=== PATIENT | female | born 1940 | race Caucasian/White ===

== ENCOUNTER → 2017-03-01 | Outpatient (CLI) | payer OTHER, MEDICARE | LOC: FIMAGING 10:08 | DX: Z12.31 Encounter for screening mammogram for malignant neoplasm of breast (principal) | CPT/HCPCS: G0202 ==

== ENCOUNTER 2018-02-23 12:42 | Emergency (ER) | payer OTHER, MEDICARE ==
--- NOTE | 2018-02-23 12:59 | EDPHY ---
H & P Time Seen by Provider: 02/23/18 12:59 HPI/ROS: CHIEF COMPLAINT: High blood pressure and nausea HISTORY OF PRESENT ILLNESS: 78-year-old woman has a history of hyperlipidemia, subdural, knee and hip replacement. She was in her primary care physician's office this past week on Tuesday and had incidentally diagnosed hypertension and was advised to monitor her blood pressure. Apparently the systolics were in the 150 range on Tuesday. Today she took her blood pressure and it was as high as 204/102, about an hour ago around noon she developed nausea and feeling lightheaded presents for evaluation. Not associated with abdominal pain or vomiting. No palpitations or syncope. Symptoms mild, she does feel anxious. REVIEW OF SYSTEMS: Eye: no change in vision, no double vision. ENT: no sore throat Cardiac: No chest pain, intermittently lightheaded for about the past week but not currently in the ER. Pulmonary: no cough or SOB Abdomen: no vomiting, diarrhea, abdominal pain. 2 other urgent bowel movements earlier today otherwise negative Musculoskeletal: no back pain Skin: no rash Neuro: Intermittent sharp left-sided headaches ever since her subdural which are unchanged today. Constitutional: no fever : no urinary symptoms A comprehensive 10 point review of systems is otherwise negative aside from elements mentioned in the history of present illness. PAST MEDICAL HISTORY: Includes subdural hematoma, left knee and hip replacement , oophorectomy, hyperlipidemia. Social history: Nonsmoker, here with her friend Brian who is [employer] analysis technician. General Appearance: Alert and conversant, cooperative. Cheerful, makes jokes with me. Eyes: No scleral icterus. Pupils equal and reactive extraocular motion intact ENT, Mouth: Normal mucous membranes. Respiratory: Normal respiratory effort, breath sounds equal, lungs are clear to auscultation. Cardiovascular: Regular rate and rhythm. Gastrointestinal: Abdomen is soft and non tender. Neurological: Alert, face symmetric, normal motor and sensory in extremities. Normal [id number] bilaterally, fluent speech, no pronator drift. Skin: Warm and dry, no rashes. Musculoskeletal: No peripheral edema. Psychiatric: Not agitated. Emergency Department course/MDM: 1322: Discussed with Rosalind, recommends that she start on losartan/hctz 50/12.5 q day, will see her tomorrow. Think patient is not likely to have acute hypertensive emergency. Does not have evidence of end-organ damage on evaluation. No change in character or severity or pattern of her headache. No recent fall injury or trauma to her head. Recurrent subdural would be unlikely. BP to 170/90. Smoking Status: Former smoker Constitutional: Initial Vital Signs Temperature (C) 37.1 C 02/23/18 12:46 Heart Rate 82 02/23/18 12:46 Respiratory Rate 16 02/23/18 12:46 Blood Pressure 214/85 H 02/23/18 12:46 O2 Sat (%) 96 02/23/18 12:46 O2 Delivery Mode Room Air Allergies/Adverse Reactions: procaine HCl [From Novocain] Allergy (Verified 11/03/15 14:08) Sulfa (Sulfonamide Antibiotics) Allergy (Verified 11/03/15 14:08) LOCAL ANESTH UNK Allergy (Uncoded 11/03/15 14:08) Home Medications: Medication Instructions Recorded Crestor 02/23/18 Medical Decision Making - Diagnostics EKG Interpretation: 12-lead EKG interpreted by me; official reading is in trace master. My interpretation is sinus rhythm rate 75 no ischemic changes. - Data Points Laboratory Results: Laboratory Results 02/23/18 13:07 02/23/18 13:07 02/23/18 02/23/18 13:07 13:07 WBC 6.04 10^3/uL 10^3/uL (3.80-9.50) RBC 4.95 10^6/uL 10^6/uL (4.18-5.33) Hgb 16.1 g/dL g/dL (12.6-16.3) Hct 45.8 % % (38.0-47.0) MCV 92.5 fL fL (81.5-99.8) MCH 32.5 pg pg (27.9-34.1) MCHC 35.2 g/dL g/dL (32.4-36.7) RDW 12.7 % % (11.5-15.2) Plt Count 221 10^3/uL 10^3/uL (150-400) MPV 10.2 fL fL (8.7-11.7) Neut % (Auto) 64.5 % % (39.3-74.2) Lymph % (Auto) 26.0 % % (15.0-45.0) [place] % (Auto) 7.9 % % (4.5-13.0) Eos % (Auto) 1.0 % % (0.6-7.6) Baso % (Auto) 0.3 % % (0.3-1.7) Nucleat RBC Rel Count 0.0 % % (0.0-0.2) Absolute Neuts (auto) 3.89 10^3/uL 10^3/uL (1.70-6.50) Absolute Lymphs (auto) 1.57 10^3/uL 10^3/uL (1.00-3.00) Absolute Monos (auto) 0.48 10^3/uL 10^3/uL (0.30-0.80) Absolute Eos (auto) 0.06 10^3/uL 10^3/uL (0.03-0.40) Absolute Basos (auto) 0.02 10^3/uL 10^3/uL (0.02-0.10) Absolute Nucleated RBC 0.00 10^3/uL 10^3/uL (0-0.01) Immature Gran % 0.3 % % (0.0-1.1) Immature Gran # 0.02 10^3/uL 10^3/uL (0.00-0.10) Sodium 133 mEq/L L mEq/L (135-145) Potassium 3.7 mEq/L mEq/L (3.5-5.2) Chloride 100 mEq/L mEq/L (97-110) Carbon Dioxide 22 mEq/l mEq/l (22-31) Anion Gap 11 mEq/L mEq/L (8-16) BUN 17 mg/dL mg/dL (7-23) Creatinine 0.8 mg/dL mg/dL (0.6-1.0) Estimated GFR > 60 Glucose 101 mg/dL H mg/dL (70-100) Calcium 9.4 mg/dL mg/dL (8.5-10.4) Troponin I < 0.012 ng/mL ng/mL (0.000-0.034) Medications Given: Discontinued Medications HCTZ/Losartan Potassium (Hyzaar 50/12.5) 1 tab PO EDNOW ONE Stop: 02/24/18 13:34 Last Admin: 02/23/18 14:02 Dose: 1 tab Departure - Departure Disposition: Home, Routine, Self-Care Clinical Impression: Hypertension Qualifiers: Hypertension type: unspecified Qualified Code(s): I10 - Essential (primary) hypertension Condition: Good Instructions: Hypertension (ED) Additional Instructions: Normal EKG, troponin, and creatnine (kidney function). Referrals: Rebecca Boyer MD [Primary Care Provider] - 1 day without fail (Dr. Boyer wants to see you tomorrow in the office.)
--- NOTE | 2018-02-23 13:06 | CPEKG ---
Heart Rate: 75 RR Interval: 800 P-R Interval: 200 QRSD Interval: 100 QT Interval: 412 QTC Interval: 461 P [place]: 12 QRS [place]: 26 T Wave [place]: 48 EKG Severity - NORMAL ECG - EKG Impression: SINUS RHYTHM Electronically Signed By: Danielito Strickland 23-Feb-2018 13:27:25
[2018-02-23 13:27] LABS: PLATELET COUNT 221 10^3/uL (150-400)
[2018-02-23 14:08] VITALS: BP 170/90
[2018-02-24] MEDS ORDERED: LOSARTAN/HCTZ 50/12.5 1 TAB PO ONE (13:33)
== END 2018-02-23 14:17 | disposition home or self-care (01) ==
DX: I10 Essential (primary) hypertension (principal); Z87.891 Personal history of nicotine dependence

== ENCOUNTER → 2018-03-29 | Outpatient (CLI) | payer OTHER, MEDICARE | LOC: FIMAGING 13:10 | PROVIDERS: ATTEND Internal Medicine | DX: Z12.31 Encounter for screening mammogram for malignant neoplasm of breast (principal) ==

== ENCOUNTER 2018-04-05 16:41 | Emergency (ER) | payer OTHER, MEDICARE ==
--- NOTE | 2018-04-05 17:04 | EDPHY ---
H & P Stated Complaint: tripped over potting soil fell backwards hitting head/hx subdural 2016 Time Seen by Provider: 04/05/18 16:51 HPI/ROS: CHIEF COMPLAINT: Fall HISTORY OF PRESENT ILLNESS: Patient is a 78-year-old female who comes to the emergency department with her son after she fell backwards over some guarding equipment and landed on her back and hit the back of her head on some pavement. She denies loss consciousness. She denies back or neck pain. She and her son are concerned however because 2 years ago she had a fall and the initial head CT was negative but she returned 2 weeks later with persistent headaches and was found have a delayed subdural hemorrhage. She was monitored and eventually discharged from the hospital. She then returned another 2 weeks later at that point had a new spontaneous subdural hemorrhage as well. She was worked up with an MRI and coagulopathy studies that were normal. She is not on any blood thinners. She denies significant headache or nausea at this time. She had both of these with her previous episode. Her fall today happened at 9: 45 a.m.. REVIEW OF SYSTEMS: Constitutional: denies: chills, fever, recent illness, recent injury EENTM: denies: blurred vision, double vision, nose congestion Respiratory: denies: cough, shortness of breath Cardiac: denies: chest pain, irregular heart rate, lightheadedness, palpitations Gastrointestinal/Abdominal: denies: abdominal pain, diarrhea, nausea, vomiting, blood streaked stools Genitourinary: denies: dysuria, frequency, hematuria, pain Musculoskeletal: denies: joint pain, muscle pain Skin: denies: lesions, rash, jaundice, bruising Neurological: See HPI denies: headache, numbness, paresthesia, tingling, dizziness, weakness Hematologic/Lymphatic: denies: blood clots, easy bleeding, easy bruising Immunologic/allergic: denies: HIV/AIDS, transplant EXAM: GENERAL: Well-appearing, well-nourished and in no acute distress. HEAD: Atraumatic, normocephalic. EYES: Pupils equal round and reactive to light, extraocular movements intact, sclera anicteric, conjunctiva are normal. ENT: TMs normal, nares patent, oropharynx clear without exudates. Moist mucous membranes. NECK: Normal range of motion, supple without lymphadenopathy or JVD. LUNGS: Breath sounds clear to auscultation bilaterally and equal. No wheezes rales or rhonchi. HEART: Regular rate and rhythm without murmurs, rubs or gallops. ABDOMEN: Soft, nontender, normoactive bowel sounds. No guarding, no rebound. No masses appreciated. BACK: No CVA tenderness, no spinal tenderness, step-offs or deformities EXTREMITIES: Normal range of motion, no pitting or edema. No clubbing or cyanosis. NEUROLOGICAL: Cranial nerves II through XII grossly intact. Normal speech, normal gait. 5/5 strength, normal movement in all extremities, normal sensation PSYCH: Normal mood, normal affect. SKIN: Warm, dry, normal turgor, no visible rashes or lesions. Source: Patient Exam Limitations: No limitations - Personal History Current Tetanus Diphtheria and Acellular Pertussis (TDAP): Yes Tetanus Vaccine Date: 2011 - Medical/Surgical History Hx Asthma: No Hx Chronic Respiratory Disease: No Hx Diabetes: No Hx Cardiac Disease: No Hx Renal Disease: No Hx Cirrhosis: No Hx Alcoholism: No Hx HIV/AIDS: No Hx Splenectomy or Spleen Trauma: No Other PMH: PMH: subdural hematoma 10/05. PSH: L hip; l knee; oophrectomy;. hyperlipidemia - Family History Significant Family History: No pertinent family hx - Social History Smoking Status: Former smoker Alcohol Use: Sober Drug Use: None Constitutional: Initial Vital Signs Temperature (C) 36.7 C 04/05/18 16:46 Heart Rate 76 04/05/18 16:46 Respiratory Rate 17 04/05/18 16:46 Blood Pressure 188/96 H 04/05/18 16:46 O2 Sat (%) 95 04/05/18 16:46 O2 Delivery Mode Room Air Allergies/Adverse Reactions: procaine HCl [From Novocain] Allergy (Verified 04/05/18 16:45) Sulfa (Sulfonamide Antibiotics) Allergy (Verified 04/05/18 16:45) LOCAL ANESTH UNK Allergy (Uncoded 11/03/15 14:08) Home Medications: Medication Instructions Recorded Crestor 02/23/18 Lisinopril 04/05/18 Medical Decision Making - Diagnostics Imaging: Discussed imaging studies w/ showcase maker Radiologist ED Course/Re-evaluation: 5:58 p.m. We discussed the CT results. The patient remains asymptomatic. She is eager to go. We discussed indications for returning. She and her son are very much relieved. Differential Diagnosis: Partial list of the Differential diagnosis considered include but were not limited to; fall, contusion, intracranial hemorrhage and although unlikely based on the history and physical exam, I also considered fracture, neck injury , syncope, cardiac disease. I discussed these differential diagnoses and the plan with the patient as well as the usual and expected course. The patient understands that the diagnosis is provisional and that in medicine we are not always correct and that further workup is often warranted. Usual and customary warnings were given. All of the patient's questions were answered. The patient was instructed to return to the emergency department should the symptoms at all worsen or return, otherwise to followup with the physician as we discussed. Departure - Departure Disposition: Home, Routine, Self-Care Clinical Impression: Fall Qualifiers: Encounter type: initial encounter Qualified Code(s): W19.XXXA - Unspecified fall, initial encounter Condition: Fair Instructions: Fall Prevention for Older Adults (ED) Referrals: Rebecca Boyer MD [Primary Care Provider] - As per Instructions
[2018-04-05 18:11] VITALS: BP 145/82
== END 2018-04-05 18:13 | disposition home or self-care (01) ==
DX: Z04.3 Encounter for examination and observation following other accident (principal); Z87.891 Personal history of nicotine dependence; W18.39XA Other fall on same level, initial encounter; Y92.480 Sidewalk as the place of occurrence of the external cause

== ENCOUNTER 2018-12-09 11:05 | Emergency (ER) | payer OTHER, MEDICARE ==
[2018-12-09] MEDS ORDERED: METOCLOPRAMIDE 10 MG/2 ML VIAL IVP ONE (11:35)
[2018-12-09] MEDS ORDERED: NS 1,000 ML IV ONE (11:35)
--- NOTE | 2018-12-09 11:42 | EDPHY ---
H & P Stated Complaint: Syncope/N/V Time Seen by Provider: 12/09/18 11:31 HPI/ROS: CHIEF COMPLAINT: Nausea vomiting, syncope head injury HISTORY OF PRESENT ILLNESS: The patient is a 78-year-old female with history 2 years ago of traumatic subdural. She states that she ate a bad burrito yesterday and few hours later began having diarrhea and vomiting. On her way to the bathroom she fainted. She woke up with vomited diarrhea on the floor and a bump on her head on the left parietal region. She states that her GI symptoms have improved but she still feels nauseous. No abdominal pain. She does have a mild headache. She is concerned because the previous head injuries. That did not require surgery. She denies neck pain. She denies chest pain or shortness of breath. No urinary symptoms. No bleeding. She also has an abrasion to her right posterior shoulder. Severity: Moderate Modifying factors: Improving with time REVIEW OF SYSTEMS: Constitutional: denies: chills, fever, recent illness, recent injury EENTM: denies: blurred vision, double vision, nose congestion Respiratory: denies: cough, shortness of breath Cardiac: denies: chest pain, irregular heart rate, lightheadedness, palpitations Gastrointestinal/Abdominal: See HPI Genitourinary: denies: dysuria, frequency, hematuria, pain Musculoskeletal: denies: joint pain, muscle pain Skin: denies: lesions, rash, jaundice, bruising Neurological: See HPI denies: numbness, paresthesia, tingling, dizziness, weakness Hematologic/Lymphatic: denies: blood clots, easy bleeding, easy bruising Immunologic/allergic: denies: HIV/AIDS, transplant 10 systems reviewed and negative except as noted EXAM: GENERAL: Well-appearing, well-nourished and in no acute distress. HEAD: Hematoma left parietal region, no laceration. No crepitus, normocephalic. EYES: Pupils equal round and reactive to light, extraocular movements intact, sclera anicteric, conjunctiva are normal. ENT: TMs normal, nares patent, oropharynx clear without exudates. Moist mucous membranes. NECK: Normal range of motion, supple without lymphadenopathy or JVD. LUNGS: Breath sounds clear to auscultation bilaterally and equal. No wheezes rales or rhonchi. HEART: Regular rate and rhythm without murmurs, rubs or gallops. ABDOMEN: Soft, nontender, normoactive bowel sounds. No guarding, no rebound. No masses appreciated. BACK: No CVA tenderness, no spinal tenderness, step-offs or deformities EXTREMITIES: Normal range of motion, no pitting or edema. No clubbing or cyanosis. NEUROLOGICAL: Cranial nerves II through XII grossly intact. Normal speech, normal gait. 5/5 strength, normal movement in all extremities, normal sensation , normal reflexes PSYCH: Normal mood, normal affect. SKIN: Abrasion right posterior shoulder, normal range of motion Source: Patient Exam Limitations: No limitations - Personal History Current Tetanus/Diphtheria Vaccine: Yes Tetanus Vaccine Date: 2011 - Medical/Surgical History Hx Asthma: No Hx Chronic Respiratory Disease: No Hx Diabetes: No Hx Cardiac Disease: Yes Hx Renal Disease: No Hx Cirrhosis: No Hx Alcoholism: No Hx HIV/AIDS: No Hx Splenectomy or Spleen Trauma: No Other PMH: PMH: subdural hematoma 10/05. PSH: L hip; l knee; oophrectomy;. hyperlipidemia - Family History Significant Family History: No pertinent family hx - Social History Smoking Status: Former smoker Alcohol Use: None Constitutional: Initial Vital Signs Temperature (C) 36.7 C 12/09/18 11:14 Heart Rate 91 12/09/18 11:14 Respiratory Rate 18 12/09/18 11:14 Blood Pressure 133/80 H 12/09/18 11:14 O2 Sat (%) 92 12/09/18 11:14 O2 Delivery Mode Room Air Allergies/Adverse Reactions: procaine HCl [From Novocain] Allergy (Verified 12/09/18 11:18) Sulfa (Sulfonamide Antibiotics) Allergy (Verified 12/09/18 11:18) LOCAL ANESTH UNK Allergy (Uncoded 12/09/18 11:18) Home Medications: Medication Instructions Recorded Crestor 02/23/18 Lisinopril 04/05/18 Ondansetron Odt [Zofran Odt 4 mg 4 mg PO Q4 PRN #20 tab 12/09/18 (RX)] Medical Decision Making - Diagnostics EKG Interpretation: An EKG obtained and was read and documented in trace view. Please see trace view for full reading and report. Sinus rhythm, no acute ischemic changes Imaging Results: Imaging Impressions Head CT 12/09/18 11:38 Impression: Normal left scalp hematoma. Otherwise Negative without intracranial posttraumatic sequela identified. Results discussed with Dr. Otoole at 12:22 PM. General information for patients regarding this examination can be found at [email or web address]. If you have questions or comments about this report, please contact me at (hospital) or [phone] (cell). ). Imaging: Discussed imaging studies w/ chief load dispatcher Radiologist ED Course/Re-evaluation: 12:20 p.m. the patient's nausea has resolved but she still has a mild headache. Will add Toradol. She is asking to go home. 1:20 p.m. the patient is feeling much better. She is eager to go home. She declines further workup or testing. We discussed indications for returning. Differential Diagnosis: Partial list of the Differential diagnosis considered include but were not limited to; gastritis, dehydration, syncope, contusion and although unlikely based on the history and physical exam, I also considered fracture, intracranial hemorrhage, seizure, acute coronary disease. I discussed these differential diagnoses and the plan with the patient as well as the usual and expected course. The patient understands that the diagnosis is provisional and that in medicine we are not always correct and that further workup is often warranted. Usual and customary warnings were given. All of the patient's questions were answered. The patient was instructed to return to the emergency department should the symptoms at all worsen or return, otherwise to followup with the physician as we discussed. - Data Points Laboratory Results: Laboratory Results 12/09/18 11:25 12/09/18 11:25 12/09/18 12/09/18 11:25 11:25 WBC 10.92 10^3/uL H 10^3/uL (3.80-9.50) RBC 4.94 10^6/uL 10^6/uL (4.18-5.33) Hgb 16.3 g/dL g/dL (12.6-16.3) Hct 46.8 % % (38.0-47.0) MCV 94.7 fL fL (81.5-99.8) MCH 33.0 pg pg (27.9-34.1) MCHC 34.8 g/dL g/dL (32.4-36.7) RDW 12.2 % % (11.5-15.2) Plt Count 247 10^3/uL 10^3/uL (150-400) MPV 10.0 fL fL (8.7-11.7) Neut % (Auto) Not Reported Lymph % (Auto) Not Reported [place] % (Auto) Not Reported Eos % (Auto) Not Reported Baso % (Auto) Not Reported Nucleat RBC Rel Count Not Reported Absolute Neuts (auto) Not Reported Absolute Lymphs (auto) Not Reported Absolute Monos (auto) Not Reported Absolute Eos (auto) Not Reported Absolute Basos (auto) Not Reported Absolute Nucleated RBC Not Reported Immature Gran % Not Reported Seg Neutrophils % 88.0 % % Band Neutrophils % 10.0 % % Lymphocytes % 2.0 % % Monocytes % 0.0 % % Eosinophils % 0.0 % % Basophils % 0.0 % % Metamyelocytes % 0.0 % % Myelocytes % 0.0 % % Promyelocytes % 0.0 % % Blast Cells % 0.0 % % Immature Gran # Not Reported Absolute Seg Neuts 9.61 10^3/uL H 10^3/uL (1.70-6.50) Absolute Band Neuts 1.09 10^3/uL H 10^3/uL (0.00-0.70) Absolute Lymphocytes 0.22 10^3/uL L 10^3/uL (1.00-3.00) Absolute Monocytes 0.00 10^3/uL L 10^3/uL (0.30-0.80) Absolute Eosinophils 0.00 10^3/uL L 10^3/uL (0.03-0.40) Absolute Basophils 0.00 10^3/uL L 10^3/uL (0.02-0.10) Absolute Metamyelocyte 0.00 10^3/mL 10^3/mL (0.00-0.00) Absolute Myelocytes 0.00 10^3/mL 10^3/mL (0.00-0.00) Absolute Promyelocytes 0.00 10^3/uL 10^3/uL (0.00-0.00) Absolute Plasma Cells 0.00 10^3/uL 10^3/uL (0.00-0.00) Nucleated RBCs 0 /100 WBC /100 WBC (0-0) Absolute Blast Cells 0.00 10^3/uL 10^3/uL (0.00-0.00) Plasma Cells % 0.0 % % Platelet Estimate ADEQUATE (ADEQ) Oval Macrocytes 1+ H Sodium 135 mEq/L mEq/L (135-145) Potassium 3.8 mEq/L mEq/L (3.5-5.2) Chloride 102 mEq/L mEq/L (97-110) Carbon Dioxide 25 mEq/l mEq/l (22-31) Anion Gap 8 mEq/L mEq/L (6-14) BUN 20 mg/dL mg/dL (7-23) Creatinine 0.8 mg/dL mg/dL (0.6-1.0) Estimated GFR > 60 Glucose 133 mg/dL H mg/dL (70-100) Calcium 9.2 mg/dL mg/dL (8.5-10.4) Total Bilirubin 0.8 mg/dL mg/dL (0.1-1.4) Conjugated Bilirubin 0.2 mg/dL mg/dL (0.0-0.5) Unconjugated Bilirubin 0.6 mg/dL mg/dL (0.0-1.1) AST 32 IU/L IU/L (14-46) ALT 29 IU/L IU/L (9-52) Alkaline Phosphatase 69 IU/L IU/L (38-126) Total Protein 7.0 g/dL g/dL (6.3-8.2) Albumin 4.5 g/dL g/dL (3.5-5.0) Lipase 85 IU/L IU/L (23-300) Medications Given: Discontinued Medications Sodium Chloride (Ns) 1,000 mls @ 0 mls/hr IV EDNOW ONE; Wide Open PRN Reason: Protocol Stop: 12/09/18 11:36 Last Admin: 12/09/18 11:48 Dose: 1,000 mls Ketorolac Tromethamine (Toradol) 30 mg IVP EDNOW ONE Stop: 12/09/18 12:27 Last Admin: 12/09/18 12:29 Dose: 30 mg Metoclopramide HCl (Reglan Injection) 10 mg IVP EDNOW ONE Stop: 12/09/18 11:36 Last Admin: 12/09/18 11:48 Dose: 10 mg Departure - Departure Disposition: Home, Routine, Self-Care Clinical Impression: Gastroenteritis, Syncope and collapse, Hematoma Condition: Fair Instructions: Syncope (ED), Gastroenteritis (ED) Referrals: Rebecca Boyer MD [Primary Care Provider] - 2-3 days, call for appt. Prescriptions: Ondansetron Odt [Zofran Odt 4 mg (RX)] 4 mg PO Q4 PRN #20 tab PRN Reason: Nausea & Vomiting
--- NOTE | 2018-12-09 11:44 | CPEKG ---
Test Reason : OPEN Blood Pressure : / mmHG Vent. Rate : 085 BPM Atrial Rate : 085 BPM P-R Int : 185 ms QRS Dur : 099 ms QT Int : 365 ms P-R-T Axes : 020 040 060 degrees QTc Int : 434 ms Sinus tachycardia Ventricular premature complex Confirmed by Michael Otoole ([id number]) on 12/09/2018 11:43:33 AM Referred By: Confirmed By:Michael Otoole
[2018-12-09 11:46] LABS: PLATELET COUNT 247 10^3/uL (150-400)
[2018-12-09] MEDS ORDERED: KETOROLAC 30 MG/1 ML SDV IVP ONE (12:26)
[2018-12-09 13:22] VITALS: BP 122/74
== END 2018-12-09 13:21 | disposition home or self-care (01) ==
DX: R55 Syncope and collapse (principal); K52.9 Noninfective gastroenteritis and colitis, unspecified; S00.83XA Contusion of other part of head, initial encounter; E86.9 Volume depletion, unspecified; W01.198A Fall on same level from slipping, tripping and stumbling with subsequent striking against other object, initial encounter; Y92.002 Bathroom of unspecified non-institutional (private) residence as the place of occurrence of the external cause
CPT/HCPCS: 70450; 93005; 96361; 96374; 96375; 99285; J1885; J2765

== ENCOUNTER 2018-12-27 14:08 | Observation (INO) | payer OTHER, MEDICARE ==
[2018-12-27] MEDS ORDERED: NS 1,000 ML IV ONE (14:15)
--- NOTE | 2018-12-27 14:15 | EDPHY ---
H & P Time Seen by Provider: 12/27/18 14:09 HPI/ROS: Chief complaint. Syncope, vomiting HPI. Patient is 78-year-old female here by EMS. She was at a [employer] and began to feel weak and dizzy. She sat down put her head down. She thinks she then passed out in a sitting position. She did not fall. She does not have injury. She had no chest discomfort or shortness of breath. Patient was seen 12/09/2018 for nausea vomiting and syncope. She did strike her head at that time and had a head CT which was normal. 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 She did not strike her head this time. For the past 2 weeks she has had some queasy stomach and not formed bowel movements. Mild discomfort between epigastrium and umbilicus. Does not radiate to back. Continues to be nauseated despite Zofran per EMS. ROS 10 systems were reviewed and negative with the exception of the elements mentioned in the history of present illness Past Medical/Surgical History: Traumatic subdural, dyslipidemia, hypertension Social History: Divorce, nonsmoker, no alcohol Smoking Status: Former smoker Physical Exam: General Appearance: Alert well-developed female mild distress vital signs are stable Eyes: Pupils equal and round no pallor or injection. ENT, head without evidence of trauma Respiratory: There are no retractions, lungs are clear to auscultation. Cardiovascular: Regular rate and rhythm. Gastrointestinal: Abdomen is soft with mild tenderness between the epigastrium and umbilicus. Normal bowel sounds. No masses. Neurological: Awake and alert, sensory and motor exams grossly normal. Skin: Warm and dry, no rashes. Musculoskeletal: Neck is supple nontender. Extremities symmetrical, full range of motion. Psychiatric: Patient is oriented X 3, there is no agitation. Constitutional: Initial Vital Signs Temperature (C) 36.7 C 12/27/18 14:22 Heart Rate 76 12/27/18 14:22 Respiratory Rate 18 12/27/18 14:22 Blood Pressure 142/79 H 12/27/18 14:22 O2 Sat (%) 97 12/27/18 14:22 O2 Delivery Mode Nasal Cannula O2 (L/minute) 2 Allergies/Adverse Reactions: procaine HCl [From Novocain] Allergy (Verified 12/09/18 11:18) Sulfa (Sulfonamide Antibiotics) Allergy (Verified 12/09/18 11:18) LOCAL ANESTH UNK Allergy (Uncoded 12/09/18 11:18) Home Medications: Medication Instructions Recorded Crestor 02/23/18 Lisinopril 04/05/18 Medical Decision Making - Diagnostics EKG Interpretation: EKG interpreted by me shows normal sinus rhythm with normal interval and axis. QRS is normal. There is [address] elevation or depression. Rate is 54 Procedures: IV normal saline. Phenergan for nausea ED Course/Re-evaluation: Re-evaluation 2:50 p.m.. Patient is stable though complains of being cold, continue nausea, weak We discussed laboratory evaluation and EKG findings. Patient is offered admission. Patient feeling better but still weak. Patient and I discussed laboratory evaluation and recommendation for admission. She expresses understanding and agreement I consulted discussed case with , hospitalist, who agrees to the admission Differential Diagnosis: Recent diagnosis of norovirus. Continuing diarrhea. Labs appear to show dehydration. I considered acute coronary syndrome, electrolyte abnormality, Cardiac arrhythmia. - Data Points Laboratory Results: Laboratory Results 12/27/18 14:20 12/27/18 14:20 12/27/18 12/27/18 12/27/18 14:27 14:20 14:20 WBC 11.65 10^3/uL H 10^3/uL (3.80-9.50) RBC 5.17 10^6/uL 10^6/uL (4.18-5.33) Hgb 16.8 g/dL H g/dL (12.6-16.3) Hct 47.9 % H % (38.0-47.0) MCV 92.6 fL fL (81.5-99.8) MCH 32.5 pg pg (27.9-34.1) MCHC 35.1 g/dL g/dL (32.4-36.7) RDW 11.9 % % (11.5-15.2) Plt Count 380 10^3/uL 10^3/uL (150-400) MPV 10.3 fL fL (8.7-11.7) Neut % (Auto) 61.8 % % (39.3-74.2) Lymph % (Auto) 29.7 % % (15.0-45.0) [place] % (Auto) 7.0 % % (4.5-13.0) Eos % (Auto) 0.9 % % (0.6-7.6) Baso % (Auto) 0.3 % % (0.3-1.7) Nucleat RBC Rel Count 0.0 % % (0.0-0.2) Absolute Neuts (auto) 7.21 10^3/uL H 10^3/uL (1.70-6.50) Absolute Lymphs (auto) 3.46 10^3/uL H 10^3/uL (1.00-3.00) Absolute Monos (auto) 0.81 10^3/uL H 10^3/uL (0.30-0.80) Absolute Eos (auto) 0.10 10^3/uL 10^3/uL (0.03-0.40) Absolute Basos (auto) 0.04 10^3/uL 10^3/uL (0.02-0.10) Absolute Nucleated RBC 0.00 10^3/uL 10^3/uL (0-0.01) Immature Gran % 0.3 % % (0.0-1.1) Immature Gran # 0.03 10^3/uL 10^3/uL (0.00-0.10) Sodium 136 mEq/L mEq/L (135-145) Potassium 3.9 mEq/L mEq/L (3.5-5.2) Chloride 105 mEq/L mEq/L (97-110) Carbon Dioxide 19 mEq/l L mEq/l (22-31) Anion Gap 12 mEq/L mEq/L (6-14) BUN 19 mg/dL mg/dL (7-23) Creatinine 1.1 mg/dL H mg/dL (0.6-1.0) Estimated GFR 48 Glucose 111 mg/dL H mg/dL (70-100) Calcium 9.6 mg/dL mg/dL (8.5-10.4) POC Troponin I 0.00 ng/mL ng/mL (0.00-0.08) Medications Given: Discontinued Medications Sodium Chloride (Ns) 1,000 mls @ 0 mls/hr IV EDNOW ONE; Wide Open PRN Reason: Protocol Stop: 12/27/18 14:16 Last Admin: 12/27/18 14:22 Dose: 1,000 mls Promethazine HCl (Phenergan) 12.5 mg IVP EDNOW ONE Stop: 12/27/18 14:26 Last Admin: 12/27/18 14:33 Dose: 12.5 mg Point of Care Test Results: Chemistry 12/27/18 14:27 POC Troponin I 0.00 ng/mL ng/mL (0.00-0.08) Departure - Departure Disposition: [facility] Inpatient Acute Clinical Impression: Syncope Qualifiers: Syncope type: unspecified Qualified Code(s): R55 - Syncope and collapse Condition: Fair Referrals: Rebecca Boyer MD [Primary Care Provider] - As per Instructions
[2018-12-27] MEDS ORDERED: PROMETHAZINE HCL 25 MG/ML INJ IVP ONE (14:25)
--- NOTE | 2018-12-27 14:31 | CPEKG ---
Test Reason : OPEN Blood Pressure : / mmHG Vent. Rate : 054 BPM Atrial Rate : 054 BPM P-R Int : 201 ms QRS Dur : 101 ms QT Int : 472 ms P-R-T Axes : 016 045 052 degrees QTc Int : 448 ms Sinus rhythm Atrial premature complex Confirmed by Chaz Adler ([id number]) on 12/27/2018 2:31:19 PM Referred By: Chaz Adler Confirmed By:Chaz Adler
[2018-12-27 14:34] LABS: PLATELET COUNT 380 10^3/uL (150-400)
[2018-12-27] MEDS ORDERED: HYDROmorphONE/DILAUDID 1 MG/ML INJ IVP PRN (16:43)
[2018-12-27] MEDS ORDERED: IBUPROFEN 200 MG TAB PO PRN (16:43)
[2018-12-27] MEDS ORDERED: HYDROCODONE/APAP 5/325 TAB PO PRN (16:43)
[2018-12-27] MEDS ORDERED: oxyCODONE IR 5 MG TAB PO PRN (16:43)
[2018-12-27] MEDS ORDERED: PROMETHAZINE HCL 25 MG/ML INJ IVP PRN (16:43)
[2018-12-27] MEDS ORDERED: ONDANSETRON DISINTEGRATING 4 MG TAB PO PRN (16:43)
[2018-12-27] MEDS ORDERED: ACETAMINOPHEN 325 MG TAB PO PRN (16:43)
[2018-12-27] MEDS ORDERED: ONDANSETRON 4 MG/2 ML VIAL IVP PRN (16:43)
[2018-12-27] MEDS ORDERED: hydrALAZINE 20 MG/ML VIAL IVP PRN (16:50)
--- NOTE | 2018-12-27 16:55 | PDGENHP ---
History and Physical - Chief Complaint syncope, not feeling right - History of Present Illness 78 yo F with PMH of SDH, HTN and HLD presenting following a syncopal or near syncopal event and with multiple other complaints that have been present for the last couple of weeks. Patient notes that on 12/09 she was seen in this ER with severe n/v/diarrhea that led to a syncopal event at which time she suffered a head injury when she fainted. She was so weak at that time that she was unable to get off of the floor and ultimately had to call 911. She did not have serologies sent at that visit, but the friend who took her to the hospital at that time developed similar sxs a few days later and was diagnosed with norovirus. She did have a head CT at that time which was negative for bleed or other acute findings. She has continued to have various symptoms since that ER visit, including continued frequent stools, significant gas and indigestion and intolerance of various foods. She notes that she also has not felt quite right in her head, she feels as if it is hard to focus on things and her ability to pay attention is generally off. She has had some gait instability as well. Her BP has been labile at home when she checks it--often in the 150's or higher systolic but then will go back down to the 120s shortly after. She notes that today she was sitting in a pottery class when she sort of slumped over and may have lost consciousness. She did not fall off her stool or hit the ground. She is concerned because of how off she feels in general, and she notes that when she had her 2 prior hospitalizations for SDH, both were diagnosed weeks after the initial injury, and she is worried that she could have developed a bleed subsequent to the fall 2 weeks ago. History Information - Allergies/Home Medication List Allergies/Adverse Reactions: procaine HCl [From Novocain] Allergy (Verified 12/09/18 11:18) Sulfa (Sulfonamide Antibiotics) Allergy (Verified 12/09/18 11:18) LOCAL ANESTH UNK Allergy (Uncoded 12/09/18 11:18) Home Medications: Losartan/Hctz 50/12.5 [Hyzaar 50/12.5MG (*)] 1 tab PO DAILY 12/27/18 [Last Taken 12/27/18 09:00] Multivitamins [Multivitamin (*)] 1 each PO DAILY 12/27/18 [Last Taken 12/27/18 09:00] Rosuvastatin Calcium [Rosuvastatin Calcium] 5 mg PO DAILY 12/27/18 [Last Taken 12/27/18 09:00] I have personally reviewed and updated: family history, medical history, social history, surgical history - Past Medical History hypertension, hyperlipidemia Additional medical history: SDH x 2 in 2017 - Surgical History Additional surgical history: knee and hip replacements - Family History Positive for: non-pertinent - Social History Smoking Status: Former smoker Alcohol Use: Rarely Drug Use: None Additional social history: lives alone, accompanied by 2 friends who are present at bedside Review of Systems Review of Systems: ROS: 10pt was reviewed & negative except for what was stated in HPI & below Physical Exam Physical Exam: Temp Pulse Resp BP Pulse Ox 36.7 C 59 L 20 147/78 H 99 12/27/18 14:22 12/27/18 14:41 12/27/18 14:41 12/27/18 14:41 12/27/18 14:41 Constitutional: no apparent distress, appears nourished Eyes: PERRL, anicteric sclera Ears, Nose, Mouth, Throat: moist mucous membranes, hearing normal Cardiovascular: regular rate and rhythym, no murmur, rub, or gallop, No edema Respiratory: no respiratory distress, no rales or rhonchi, clear to auscultation Gastrointestinal: normoactive bowel sounds, soft, non-tender abdomen Genitourinary: no bladder tenderness Skin: warm, normal color Musculoskeletal: full muscle strength, abnormal gait, No asymmetric calves Neurologic: AAOx3, CN II-XII Intact, No weakness, No numbness Psychiatric: interacting appropriately, not anxious, not encephalopathic Lab Data & Imaging Review 12/27/18 14:20 12/27/18 14:20 WBC 11.65 10^3/uL (3.80-9.50) H 12/27/18 14:20 RBC 5.17 10^6/uL (4.18-5.33) 12/27/18 14:20 Hgb 16.8 g/dL (12.6-16.3) H 12/27/18 14:20 Hct 47.9 % (38.0-47.0) H 12/27/18 14:20 MCV 92.6 fL (81.5-99.8) 12/27/18 14:20 MCH 32.5 pg (27.9-34.1) 12/27/18 14:20 MCHC 35.1 g/dL (32.4-36.7) 12/27/18 14:20 RDW 11.9 % (11.5-15.2) 12/27/18 14:20 Plt Count 380 10^3/uL (150-400) 12/27/18 14:20 MPV 10.3 fL (8.7-11.7) 12/27/18 14:20 Neut % (Auto) 61.8 % (39.3-74.2) 12/27/18 14:20 Lymph % (Auto) 29.7 % (15.0-45.0) 12/27/18 14:20 [place] % (Auto) 7.0 % (4.5-13.0) 12/27/18 14:20 Eos % (Auto) 0.9 % (0.6-7.6) 12/27/18 14:20 Baso % (Auto) 0.3 % (0.3-1.7) 12/27/18 14:20 Nucleat RBC Rel Count 0.0 % (0.0-0.2) 12/27/18 14:20 Absolute Neuts (auto) 7.21 10^3/uL (1.70-6.50) H 12/27/18 14:20 Absolute Lymphs (auto) 3.46 10^3/uL (1.00-3.00) H 12/27/18 14:20 Absolute Monos (auto) 0.81 10^3/uL (0.30-0.80) H 12/27/18 14:20 Absolute Eos (auto) 0.10 10^3/uL (0.03-0.40) 12/27/18 14:20 Absolute Basos (auto) 0.04 10^3/uL (0.02-0.10) 12/27/18 14:20 Absolute Nucleated RBC 0.00 10^3/uL (0-0.01) 12/27/18 14:20 Immature Gran % 0.3 % (0.0-1.1) 12/27/18 14:20 Immature Gran # 0.03 10^3/uL (0.00-0.10) 12/27/18 14:20 Sodium 136 mEq/L (135-145) 12/27/18 14:20 Potassium 3.9 mEq/L (3.5-5.2) 12/27/18 14:20 Chloride 105 mEq/L (97-110) 12/27/18 14:20 Carbon Dioxide 19 mEq/l (22-31) L 12/27/18 14:20 Anion Gap 12 mEq/L (6-14) 12/27/18 14:20 BUN 19 mg/dL (7-23) 12/27/18 14:20 Creatinine 1.1 mg/dL (0.6-1.0) H 12/27/18 14:20 Estimated GFR 48 12/27/18 14:20 Glucose 111 mg/dL (70-100) H 12/27/18 14:20 Calcium 9.6 mg/dL (8.5-10.4) 12/27/18 14:20 POC Troponin I 0.00 ng/mL (0.00-0.08) 12/27/18 14:27 Visualized and Interpreted EKG results: Yes EKG Interpretation: Positive for: normal sinsus rhythm Assessment & Plan Assessment: Syncope (Acute) 78 yo F with PMH of SDH x 2 in 2017 as well as HTN and HLD presenting with syncope versus near syncope as well as multiple vague neurologic complaints # syncope versus near syncope: occurring in the setting of recent syncopal event during GI illness and prolonged GI sxs, does appear dry by labs and suspect this is orthostatic in nature--will check orthostatic vital signs and administer IVF overnight. Given other concurrent non specific complaints will monitor on tele and trend trops overnight, obtain an echo in the am. # GI symptoms: overall sounds as if her sxs have improved but not completely resolved, sounds as if the recent bout was likely due to norovirus given the confirmed case in her friend, will get GI pathogen panel if diarrhea recurs # gait instability/difficulty concentrating: patient with several vague complaints in the setting of hitting her head two weeks ago, she does have a hx of 2 prior SDH that were diagnosed weeks after a head trauma and has concerns this could be the same, will get head CT to gill, pt/ot to see in the am, consider MRI if head CT negative and sxs continue. Did have a recent normal TSH , will check a b12. # MAKENZIE: in the setting of recent GI illness as above, IVF overnight, will hold ARB and diuretic # HTN: has been elevated in the ER and per patient has been labile at home, holding her ARB/diuretic given MAKENZIE, PRN hydralazine # HLD: continue statin # observation status Patient new to my care. Old records reviewed and summarized as above. Care plan reviewed with ER doctor as above. Further hx obtained from patients friends present at bedside.
[2018-12-27] MEDS: NS 1,000 ML IV SCH (19:33)
[2018-12-28] MEDS: NS 1,000 ML IV SCH (03:44)
[2018-12-28 06:08] LABS: PLATELET COUNT 227 10^3/uL (150-400)
[2018-12-28] MEDS ORDERED: ROSUVASTATIN CALCIUM 10 MG TAB PO SCH (09:00)
[2018-12-28] MEDS ORDERED: MULTIVITAMINS 1 EACH TAB PO SCH (09:00)
--- NOTE | 2018-12-28 12:50 | HOSPPROG ---
Hospitalist Progress Note Assessment/Plan: 78 yo F with PMH of SDH x 2 in 2017 as well as HTN and HLD presenting with syncope versus near syncope as well as multiple vague neurologic complaints. First encounter, chart reviewed. # syncope versus near syncope -echo pending -reviewed her 12 lead-shows sinus -hypotensive this morning but early in the morning, now stable -trop x 2 negative -orthostatics are stable # GI symptoms -GI PCR is negative -had the norovirus in November # gait instability/difficulty concentrating -CT of head shows nothing acute, no SDH -B12 413 -has frequent bouts of dizziness that have been ongoing-will get an MRI for further evaluation # MAKENZIE -resolved w hydration -ARB and diuretic held # HTN: has been elevated -holding ARB/diuretic # HLD: continue statin #plan: f/u with echo and get an MRI, patient lives alone, she is fearful of falling and hitting her head. Subjective: Howie is feeling fine except for ongoing dizziness. Objective: Vital Signs Temp Pulse Resp BP Pulse Ox 36.4 C 67 15 136/67 H 97 12/28/18 12:00 12/28/18 12:00 12/28/18 12:00 12/28/18 12:00 12/28/18 12:00 Microbiology 12/27/18 17:40 Gastrointestinal Tract Panel (PCR) - Final Stool No Organism Detected By Pcr Laboratory Results 12/28/18 05:00 12/28/18 05:00 12/27/18 12/28/18 12/29/18 05:59 05:59 05:59 Intake Total 2400 500 Output Total 1150 450 Balance 1250 50 - Physical Exam Constitutional: no apparent distress, appears nourished, not in pain Eyes: PERRL Ears, Nose, Mouth, Throat: hearing normal Cardiovascular: regular rate and rhythym Respiratory: no respiratory distress Skin: warm Musculoskeletal: generalized weakness Neurologic: AAOx3 Psychiatric: interacting appropriately ICD10 Worksheet Patient Problems: Problems Problem Status Onset Syncope Acute Arthritis of knee, left Acute Fall Acute Subdural hematoma Acute
--- NOTE | 2018-12-28 13:39 | ECHO ---
[email or web address] [address] Main: [phone] Fax: Transthoracic Echocardiogram Name: MADISON LARSON MR#: [id number] Study Date: 12/28/2018 Study Time: 11:43 AM Date of : 1940 Age: 78 year(s) Height: 175.3 cm (69 in.) Weight: 74.84 kg (165 lb.) BSA: 1.9 m2 Gender: Female Examination: Echo Indication: syncope Image Quality: Adequate Contrast: Requested by: Jayy Hankins BP: 136 mmHg/67 mmHg Heart Rate: Rhythm: Indication: syncope Procedure Staff Sales Apprentice: Katie Mazariegos RD Reading Physician: Cedric Jimenez MD Requesting Provider: Conclusions: Normal study Measurements: Chambers Valvular Assessment AV/MV Valvular Assessment TV/PV Normal Normal Normal Name Value Range Name Value Range Name Value Range Ao Jeri (2D): 3.0 cm (1.4 cm-2.6 AV Vmax: 1.08 m/s (1 m/s-1.7 TR Vmax: 2.14 mm/s ( - ) cm) m/s) TR PGmax: 18 mmHg ( - ) IVSd (2D): 1.0 cm (0.6 cm-1.1 AV maxP mmHg ( - ) syst. PAP: 23 mmHg ( - ) cm) AV meanP mmHg ( - ) PV Vmax: 0.91 m/s (0.6 m/s-0.9 LVDd (2D): 4.4 cm (3.9 cm-5.3 IZAIAH (VTI): 2.4 cm ( - ) m/s) cm) MV E Vmax: 0.72 m/s ( - ) PV PGmax: 3 mmHg ( - ) LVDs (2D): 2.8 cm (2.1 cm-4 MV A Vmax: 0.68 m/s ( - ) cm) MV E/A: 1.06 ( - ) LVPWd (2D): 1.0 cm ( - ) MV PHT: 0.051 s ( - ) LVOTd 1.8 cm 1.8 cm mm MVA (PHT): 4.3 s ( - ) LVEF (BP): 70 % (>=55 %) Visual EF: 65 % RVDd(2D): 3.0 cm (1.9 cm-3.8 cmmm) Continued Measurements: Chambers Valvular Assessment AV/MV Valvular Assessment TV/PV Name Value Name Value Name Value LADs: 3.9 cm MV DecTime: 162 m/s CVP (est.): 5 mmHg LADs Lon.8 cm MV E' Septal: 0.10 m/s LA Area: 19.8 cm2 MV E/E' Septal: 7.20 LA Volume: 56 ml MV E/E' Lateral: 5.80 LA Volume Index: 29.5 ml/m2 Patient: MADISON LARSON Study Date: 12/28/2018 Page 1 of 2 11:43 AM RA Area: 16.5 cm2 Additional Vessels Name Value Ao Ascendin.2 cm Inferior Vena Cava: 1.9 cm Findings: Left Ventricle: Normal size left ventricle. No LV hypertrophy. Normal global systolic LV function. The ejection fraction is visually estimated to be 65 %. No regional wall motion abnormality. Normal diastolic LV function. Right Ventricle: Normal size right ventricle. Normal RV function. Left Atrium: The left atrium is normal in size. Right Atrium: The right atrium is normal in size. Mitral Valve: The mitral valve is normal in appearance and function. Mild mitral valve regurgitation is present. No mitral stenosis is present. Aortic Valve: The aortic valve is tri-leaflet. Trivial aortic valve regurgitation. No aortic valve stenosis is present. Tricuspid Valve: The tricuspid valve is normal in appearance and function. Mild tricuspid regurgitation is present. The pulmonary artery pressure is normal. Right ventricular systolic pressure measures 23mmHg. Pulmonic Valve: The pulmonic valve is normal in appearance and function. Mild pulmonic valve regurgitation is noted. Aorta: The aorta is normal. Normal size aortic root measuring 3.0 cm. Normal size ascending aorta measuring 3.2 cm. IVC: The IVC is normal sized. Pericardium: Trivial pericardial effusion. No pleural effusion. (No Signature Object) Patient: MADISON LARSON Study Date: 12/28/2018 Page 2 of 2 11:43 AM [id number]
[2018-12-28] MEDS ORDERED: DIAZEPAM 5 MG/ML 1 ML SYR IVP ONE (14:05)
[2018-12-28 15:04] VITALS: BP 129/67
--- NOTE | 2018-12-28 17:15 | GDS ---
[f rep st] DISCHARGE SUMMARY DISCHARGE DIAGNOSES: 1. Syncope versus near syncope. 2. Gastrointestinal symptoms. 3. Gait instability and difficulty concentrating. 4. Acute kidney injury. 5. Hypertension. 6. Hyperlipidemia. HISTORY OF PRESENT ILLNESS: Briefly, the patient is a very sweet 78-year-old woman with a history of a subdural hematoma x2 in 2017, as well as hypertension and hyperlipidemia. She presented to the emergency room with syncope versus near syncopal symptoms, as well as multiple vague neurologic complaints. She had an MRI performed during her stay that showed no intracranial hemorrhage, mass, or ischemia. She has minimal nonspecific supratentorial white matter disease that is well within normal limits for her age. No atrophy is noted. She had a CT scan of her head that showed nothing acute. An echocardiogram was performed, which showed no left ventricular hypertrophy. She has normal global systolic LV function. Her ejection fraction is 65%. No abnormalities noted on her valves. Today, she is feeling a bit tired, but overall feeling well. She also had a gastrointestinal tract panel, PCR performed that showed no organism. She will be discharged home and further follow up with Dr. Boyer in the outpatient setting. HOSPITAL COURSE PER PROBLEM: 1. Syncope versus near syncopal episode. 12 lead shows a sinus rhythm. Her troponin x2 are negative. Her orthostatics are stable. I suspect she has high vagal tone and passes out easily. We talked about exhaling and applying a cold cloth when she starts to feel that she might pass out. Also, I am recommending that she hold her blood pressure medication because it her blood pressure has been stable without it. To follow up with Dr. Boyer. 2. GI symptoms. Her PCR is negative. She had the norovirus in November. She is going to try a probiotic. In addition, she had some symptoms of reflux during my evaluation. Recommending a trial of Prilosec. 3. Gait instability, difficulty concentrating. Her CT head showed nothing acute. No subdural hematoma. A B12 was stable. MRI showed nothing acute. 4. Acute kidney injury. This has resolved. 5. Hypertension. It has been elevated in the past. We will continue holding her ARB and diuretic until she follows up with her PCP. 6. Hyperlipidemia, on statin therapy. DISCHARGE CONDITION: Stable. Blood pressure is 129/67, heart rate is 64, respiratory rate is 16, O2 sats on room air 94%, temperature is 36.5 Celsius. MEDICATIONS AT DISCHARGE: Please see the EMR. DISCHARGE INSTRUCTIONS: 1. Hold her Hyzaar until she sees Dr. Boyer. 2. Use a cold washcloth if she feels like she is going to faint and sit down immediately. 3. Take Prilosec if she has reflux symptoms. 4. Take her blood pressure in her left arm and keep a record of this. 5. Stay well hydrated. /[id number]/MODL MTDD
--- NOTE | 2018-12-28 17:35 | ASMTCMCOM ---
CM Note CM Note Notes: Spoke w/ BACTERIOLOGY TECHNICIAN, pt cleared by PT for home. CM available for any changes. DC Plan: Independent Date Signed: 12/28/2018 05:35 PM Electronically Signed By:Mayela Phillips RN
--- NOTE | 2018-12-28 17:37 | ASMTLACE ---
LACE Length of stay for Answers: 1 day current admission Acuity / Level of Answers: No Care: Did the patient have an inpatient admission? Comorbidities - select Answers: Other Notes: HTN; HLD; Dyslipidemia all that apply # of Emergency department Answers: 1-2 visits in the last 6 months Score: 3 Date Signed: 12/28/2018 05:36 PM Electronically Signed By:Mayela Phillips RN
== END 2018-12-28 17:49 | disposition home or self-care (01) ==
LOC: EDUNIT# → INTOOBSV 16:15 → F3E 18:23
PROVIDERS: ADMIT Internal Medicine; ATTEND Internal Medicine
DX: R55 Syncope and collapse (principal); R19.8 Other specified symptoms and signs involving the digestive system and abdomen; R26.89 Other abnormalities of gait and mobility; N17.9 Acute kidney failure, unspecified; R29.6 Repeated falls; E86.9 Volume depletion, unspecified; I10 Essential (primary) hypertension; E78.5 Hyperlipidemia, unspecified; Z87.891 Personal history of nicotine dependence; Z86.79 Personal history of other diseases of the circulatory system; Z87.19 Personal history of other diseases of the digestive system; Z96.649 Presence of unspecified artificial hip joint; Z96.659 Presence of unspecified artificial knee joint; Z88.2 Allergy status to sulfonamides
CPT/HCPCS: 70450; 70551; 93005; 93306; 96361; 96374; 96375; 97116; 97161; 99285; G0378; J2550; J3360; 82607-90; 84484-ER

== ENCOUNTER 2019-01-04 13:23 | Observation (INO) | payer OTHER, MEDICARE ==
--- NOTE | 2019-01-04 13:48 | EDPHY ---
H & P Time Seen by Provider: 01/04/19 13:37 HPI/ROS: Chief complaint. Chest pressure, dizziness, syncope HPI. Patient is a 78-year-old female with syncope yesterday and then near syncope today. She feels faint and lightheaded. Nauseated. Pressure in her chest since about 9:00 a.m. It radiates through to her back. Denies shortness of breath. No unusual leg pain or swelling. Patient was admitted December 27 for syncope. She had a normal head CT as she had remote head trauma and has had a previous traumatic subdural. She had a normal MRI and echocardiogram. However her symptoms of syncope and near-syncope have continued. Called her regular physician for symptoms today and referred to the emergency department ROS 10 systems were reviewed and negative with the exception of the elements mentioned in the history of present illness Past Medical/Surgical History: Subdural hematoma, hip and knee replacements, oophorectomy, dyslipidemia Social History: , nonsmoker, no alcohol Smoking Status: Former smoker Physical Exam: General Appearance: Alert well-developed female mild distress. Vital signs are stable Eyes: Pupils equal and round no pallor or injection. ENT, Mouth: Mucous membranes are moist. Respiratory: There are no retractions, lungs are clear to auscultation. Cardiovascular: Regular rate and rhythm. Gastrointestinal: Abdomen is soft and nontender, no masses, bowel sounds normal. Neurological: Awake and alert, sensory and motor exams grossly normal. Skin: Warm and dry, no rashes. Musculoskeletal: Neck is supple nontender. Extremities symmetrical, full range of motion. Psychiatric: Patient is oriented X 3, there is no agitation. Constitutional: Initial Vital Signs Temperature (C) 36.6 C 01/04/19 13:34 Heart Rate 76 01/04/19 13:34 Respiratory Rate 16 01/04/19 13:34 Blood Pressure 166/69 H 01/04/19 13:34 O2 Sat (%) 98 01/04/19 13:34 O2 Delivery Mode Room Air Allergies/Adverse Reactions: procaine HCl [From Novocain] Allergy (Verified 01/04/19 13:33) Sulfa (Sulfonamide Antibiotics) Allergy (Verified 01/04/19 13:33) LOCAL ANESTH UNK Allergy (Uncoded 01/04/19 13:33) Home Medications: Medication Instructions Recorded Multivitamins [Multivitamin (*)] 1 each PO DAILY 12/27/18 Rosuvastatin Calcium 5 mg PO DAILY 12/27/18 Ibuprofen [Motrin (*)] 400 mg PO Q4HRS PRN tab 12/28/18 Losartan-Hctz 100-12.5 mg Tab 01/04/19 Medical Decision Making - Diagnostics EKG Interpretation: EKG interpreted by me shows normal sinus rhythm with borderline first-degree AV block. Normal axis. QRS is normal there is no significant ST elevation or depression. Mild T-wave flattening in lead V2. Rate 61 Imaging Results: Imaging Impressions Chest X-Ray 01/04/19 13:58 Impression: Normal. Procedures: IV normal saline, monitor ED Course/Re-evaluation: Re-evaluation 3:05 p.m.. Patient and I discussed laboratory evaluation, treatment plan including recommendation for admission. She expresses understanding and agreement I consulted discussed the case with Dr. Salinas, who agrees to the admission Differential Diagnosis: Recurrent syncope. I have considered acute coronary syndrome. Patient also has significant hyponatremia - Data Points Laboratory Results: Laboratory Results 01/04/19 14:14 01/04/19 14:14 01/04/19 01/04/19 01/04/19 15:00 14:17 14:14 WBC RBC Hgb Hct MCV MCH MCHC RDW Plt Count MPV Neut % (Auto) Lymph % (Auto) Hendricks % (Auto) Eos % (Auto) Baso % (Auto) Nucleat RBC Rel Count Absolute Neuts (auto) Absolute Lymphs (auto) Absolute Monos (auto) Absolute Eos (auto) Absolute Basos (auto) Absolute Nucleated RBC Immature Gran % Immature Gran # Sodium 125 mEq/L L mEq/L (135-145) Potassium 3.9 mEq/L mEq/L (3.5-5.2) Chloride 93 mEq/L L mEq/L (97-110) Carbon Dioxide 23 mEq/l mEq/l (22-31) Anion Gap 9 mEq/L mEq/L (6-14) BUN 15 mg/dL mg/dL (7-23) Creatinine 0.7 mg/dL mg/dL (0.6-1.0) Estimated GFR > 60 Glucose 95 mg/dL mg/dL (70-100) Calcium 9.0 mg/dL mg/dL (8.5-10.4) POC Troponin I 0.00 ng/mL ng/mL (0.00-0.08) Lipase 169 IU/L IU/L (23-300) Urine Color PALE YELLOW Urine Appearance CLEAR Urine pH 7.0 (5.0-7.5) Ur Specific [place] 1.005 (1.002-1.030) Urine Protein NEGATIVE (NEGATIVE) Urine Ketones TRACE H (NEGATIVE) Urine Blood NEGATIVE (NEGATIVE) Urine Nitrate NEGATIVE (NEGATIVE) Urine Bilirubin NEGATIVE (NEGATIVE) Urine Urobilinogen NEGATIVE EU EU (0.2-1.0) Ur Leukocyte Esterase NEGATIVE (NEGATIVE) Urine RBC 1-3 /hpf /hpf (0-3) Urine WBC 1-3 /hpf /hpf (0-3) Ur Epithelial Cells NONE SEEN /lpf /lpf (NONE-1+) Urine Glucose NEGATIVE (NEGATIVE) 01/04/19 14:14 WBC 5.66 10^3/uL 10^3/uL (3.80-9.50) RBC 4.60 10^6/uL 10^6/uL (4.18-5.33) Hgb 14.8 g/dL g/dL (12.6-16.3) Hct 41.2 % % (38.0-47.0) MCV 89.6 fL fL (81.5-99.8) MCH 32.2 pg pg (27.9-34.1) MCHC 35.9 g/dL g/dL (32.4-36.7) RDW 11.6 % % (11.5-15.2) Plt Count 245 10^3/uL 10^3/uL (150-400) MPV 9.6 fL fL (8.7-11.7) Neut % (Auto) 70.1 % % (39.3-74.2) Lymph % (Auto) 21.2 % % (15.0-45.0) Hendricks % (Auto) 7.6 % % (4.5-13.0) Eos % (Auto) 0.5 % L % (0.6-7.6) Baso % (Auto) 0.2 % L % (0.3-1.7) Nucleat RBC Rel Count 0.0 % % (0.0-0.2) Absolute Neuts (auto) 3.97 10^3/uL 10^3/uL (1.70-6.50) Absolute Lymphs (auto) 1.20 10^3/uL 10^3/uL (1.00-3.00) Absolute Monos (auto) 0.43 10^3/uL 10^3/uL (0.30-0.80) Absolute Eos (auto) 0.03 10^3/uL 10^3/uL (0.03-0.40) Absolute Basos (auto) 0.01 10^3/uL L 10^3/uL (0.02-0.10) Absolute Nucleated RBC 0.00 10^3/uL 10^3/uL (0-0.01) Immature Gran % 0.4 % % (0.0-1.1) Immature Gran # 0.02 10^3/uL 10^3/uL (0.00-0.10) Sodium Potassium Chloride Carbon Dioxide Anion Gap BUN Creatinine Estimated GFR Glucose Calcium POC Troponin I Lipase Urine Color Urine Appearance Urine pH Ur Specific [place] Urine Protein Urine Ketones Urine Blood Urine Nitrate Urine Bilirubin Urine Urobilinogen Ur Leukocyte Esterase Urine RBC Urine WBC Ur Epithelial Cells Urine Glucose Medications Given: Discontinued Medications Sodium Chloride (Ns) 1,000 mls @ 0 mls/hr IV EDNOW ONE; Wide Open PRN Reason: Protocol Stop: 01/04/19 13:58 Last Admin: 01/04/19 14:15 Dose: 1,000 mls Ondansetron HCl (Zofran) 4 mg IVP EDNOW ONE Stop: 01/04/19 13:58 Last Admin: 01/04/19 14:15 Dose: 4 mg Point of Care Test Results: Chemistry 01/04/19 14:17 POC Troponin I 0.00 ng/mL ng/mL (0.00-0.08) Departure - Departure Disposition: [facility] Inpatient Acute Clinical Impression: Hyponatremia Chest pain Qualifiers: Chest pain type: unspecified Qualified Code(s): R07.9 - Chest pain, unspecified Syncope Qualifiers: Syncope type: unspecified Qualified Code(s): R55 - Syncope and collapse Condition: Good Referrals: Rebecca Boyer MD [Primary Care Provider] - As per Instructions
[2019-01-04] MEDS ORDERED: NS 1,000 ML IV ONE (13:57)
[2019-01-04] MEDS ORDERED: ONDANSETRON 4 MG/2 ML VIAL IVP ONE (13:57)
[2019-01-04 14:26] LABS: PLATELET COUNT 245 10^3/uL (150-400)
[2019-01-04] MEDS ORDERED: ONDANSETRON 4 MG/2 ML VIAL IVP PRN (16:47)
[2019-01-04] MEDS ORDERED: ONDANSETRON DISINTEGRATING 4 MG TAB PO PRN (16:47)
[2019-01-04] MEDS ORDERED: ACETAMINOPHEN 325 MG TAB PO PRN (16:47)
--- NOTE | 2019-01-04 17:18 | GHP ---
[f rep st] HISTORY AND PHYSICAL DATE OF ADMISSION: 01/04/2019 HISTORY OF PRESENT ILLNESS: The patient is a pleasant 78-year-old female with a history of hypertens ion and a couple recent admissions for syncope as well as in November, having suspected norovirus. Kimberley edwards comes in today. Yesterday, she had a presyncopal episode and lay down on the bed. She did not simi e her pulse at that time. Additionally, she had a fullness in her head and some lightheadedness and perhaps some chest pressure. She has had no nausea, vomiting. No diarrhea. She notes that since her viral illness, she has been eating less and a lot of yogurt. She does take hydrochlorothiazide. REVIEW OF SYSTEMS: Complete 10-point review of systems conducted and negative except as noted in HPI . PAST MEDICAL HISTORY: Hypertension, hyperlipidemia. There is a history of subdural. ALLERGIES: Procaine, sulfa, local anesthetic. MEDICATIONS: Losartan/hydrochlorothiazide, multivitamin and rosuvastatin. SOCIAL HISTORY: No tobacco. Occasional alcohol. She does use rare marijuana but it does not correl ate with the symptoms. FAMILY HISTORY: Parents . PHYSICAL EXAMINATION: PRESENTING VITALS: Blood pressure 166/69, pulse 76, breathing 16 times a mook te, 98% on room air. GENERAL: No acute distress. HEENT: Sclerae anicteric. Oropharynx clear. Mu cous membranes are moist. NECK: Supple without lymphadenopathy or JVD. LUNGS: Clear to auscultati on bilaterally. HEART: S1, S2. ABDOMEN: Soft, nontender, nondistended. LOWER EXTREMITIES: No ed tonya. Calves are nontender. SKIN: Without rash. NEUROLOGIC: Nonfocal. LABS: White count 5, hematocrit 41, platelets 245,000. These are her baseline. Sodium 125, this is new, potassium 3.9, chloride 93, bicarb 23, BUN 15, creatinine 0.7, glucose 95. Troponin 0.00. UA is unremarkable. Chest x-ray interpreted by me shows no acute cardiopulmonary disease. EKG interpreted by me shows si nus at 61 with normal axis intervals, borderline DC prolongation. Recent brain MRI is unremarkable. Recent echocardiogram is unremarkable. I discussed the case with Dr. Chaz Adler. ASSESSMENT AND PLAN: 78-year-old female with hyponatremia, recurrent syncope. 1. Hyponatremia. I think this is poor p.o. intake. She received a liter of normal saline. I will have her check it stat now and again 8 p.m. I suspect it will have risen. She may be candidate to d lindaontinue hydrochlorothiazide permanently. She has been on it about a year. This is her 1st episod e of hyponatremia. 2. Presyncope. She has had a relatively good workup recently. I will complete the workup given its recurrent nature with vertebral artery ultrasounds/carotid ultrasound, and I also think she needs an outpatient event monitor. 3. Chest pressure. Dr. Marie is her inside sales engineer. We can set her up for an outpatient stress test . She has nonischemic EKG in relatively low risk. 4. Head fullness. No sinus symptoms. Recent noncontrast head CT about 8 days ago showed no sinus s ymptoms. 5. History of norovirus this. She is now stable with regard to this, and the bowel function is retu rning slowly to normal. DISPOSITION: Observation status. /[id number]/MODL
--- NOTE | 2019-01-04 20:47 | CPEKG ---
Test Reason : OPEN Blood Pressure : / mmHG Vent. Rate : 061 BPM Atrial Rate : 060 BPM P-R Int : 219 ms QRS Dur : 104 ms QT Int : 444 ms P-R-T Axes : -04 021 039 degrees QTc Int : 448 ms Sinus rhythm Borderline prolonged CA interval Confirmed by Chaz Adler ([id number]) on 01/04/2019 8:46:49 PM Referred By: Chaz Adler Confirmed By:Chaz Adler
[2019-01-04] MEDS ORDERED: MELATONIN 3 MG TAB PO SCH (22:15)
[2019-01-05 06:00] LABS: PLATELET COUNT 240 10^3/uL (150-400)
[2019-01-05 07:32] VITALS: BP 106/61
[2019-01-05] MEDS ORDERED: MULTIVITAMINS 1 EACH TAB PO SCH (09:00)
[2019-01-05] MEDS ORDERED: ROSUVASTATIN CALCIUM 10 MG TAB PO SCH (09:00)
--- NOTE | 2019-01-05 09:20 | HOSPPROG ---
Hospitalist Progress Note Assessment/Plan: 78 yo F w hyponatremia, syncope home today see dc summary Subjective: no events on tele (interp by me) Objective: Vital Signs Temp Pulse Resp BP Pulse Ox 36.5 C 63 16 106/61 94 01/05/19 07:32 01/05/19 07:32 01/05/19 07:32 01/05/19 07:32 01/05/19 07:32 Laboratory Results 01/05/19 05:50 01/05/19 05:50 01/04/19 01/05/19 01/06/19 05:59 05:59 05:59 Intake Total 1750 Balance 1750 - Physical Exam Constitutional: no apparent distress, appears nourished Eyes: PERRL, anicteric sclera Ears, Nose, Mouth, Throat: moist mucous membranes, hearing normal Cardiovascular: regular rate and rhythym, no murmur, rub, or gallop, No systolic murmur Respiratory: no respiratory distress, no rales or rhonchi Gastrointestinal: normoactive bowel sounds, soft, non-tender abdomen Genitourinary: No cuevas in urethra Skin: warm, normal color Musculoskeletal: full muscle strength Neurologic: AAOx3 ICD10 Worksheet Patient Problems: Problems Problem Status Onset Chest pain Acute Hyponatremia Acute Syncope Acute Arthritis of knee, left Acute Fall Acute Subdural hematoma Acute
--- NOTE | 2019-01-05 12:11 | GDS ---
[f rep st] DISCHARGE SUMMARY DISCHARGE DIAGNOSES: 1. Presyncope. 2. Hyponatremia. Please see admission history and physical by Dr. Warren Portillo. The patient presented to the hospital with presyncope. She was found have a sodium of 125. This is a new finding for her. She had presumed norovirus earlier in the year and has been eating less, and things such as yogurt. She also takes a thiazide diuretic. She is euvolemic. She received gentle I V fluids and she ate with holding of the thiazide and her sodium improved to 131. She did not have c onfusion or unsteadiness. Regarding her syncope, she has had a fairly significant recent workup including a normal echocardiogr am, normal brain MRI, normal head CT. EKGs are nonischemic. She had carotid Doppler showing no flow -limiting stenosis in her vertebral arteries nor her carotids. There were no events on telemetry. L FTs were normal. Lipase is normal. She has complained of some vague GI symptoms. I suspect this is perhaps vasovagal but I cannot rule out a peter or tachyarrhythmia and, therefore, have set up an outpatient medical staff director. Medication changes are discontinuing the hydrochlorothiazide/losartan and prescribing just losartan. /[id number]/MODL
== END 2019-01-05 10:50 | disposition home or self-care (01) ==
LOC: INTOOBSV 15:21 → F2W 16:44
PROVIDERS: ADMIT Internal Medicine; ATTEND Hospitalist
DX: R55 Syncope and collapse (principal); E87.1 Hypo-osmolality and hyponatremia; E86.9 Volume depletion, unspecified; Z87.891 Personal history of nicotine dependence
CPT/HCPCS: 71045; 93005; 93880; 96361; 96374; 99285; G0378; J2405; 84484-ER